=== PATIENT | male | born 1960 | race Asian ===

== ENCOUNTER 2018-07-31 12:37 | Day surgery (SDC) | payer OTHER ==
[2018-07-31] MEDS: LACTATED RINGER'S 1,000 ML IV (13:00)
[2018-07-31] MEDS: morphine 2 MG INJ IV (13:24)
[2018-07-31] MEDS ORDERED: POLYMYXIN/BACITRACIN 1L IRRIG (15:14)
[2018-07-31] MEDS ORDERED: LIDOCAINE 2% (SDV) 5 ML INJ (15:16)
[2018-07-31] MEDS ORDERED: PROPOFOL 20 ML (15:16)
[2018-07-31] MEDS ORDERED: CEFAZOLIN 1 GM INJ (15:16)
[2018-07-31] MEDS ORDERED: ONDANSETRON 4 MG INJ (15:17)
[2018-07-31] MEDS ORDERED: FENTAnyl 50 MCG/ML VIAL (15:19)
[2018-07-31] MEDS ORDERED: FENTAnyl 50 MCG/ML VIAL IV ×2 (15:30)
[2018-07-31] MEDS ORDERED: OXYCODONE/ACETAMINOPHEN (5/325) TAB PO (15:30)
[2018-07-31] MEDS ORDERED: MIDAZOLAM 1 MG/ML 2 ML INJ IV (15:30)
[2018-07-31] MEDS ORDERED: EPHEDrine SULFATE 50 MG/5 ML SYG IV (15:30)
[2018-07-31] MEDS ORDERED: DIPHENHYDRAMINE 50 MG INJ IV (15:30)
[2018-07-31] MEDS ORDERED: hydrALAzine 20 MG INJ IV (15:30)
[2018-07-31] MEDS ORDERED: LABETALOL HCL 20MG INJ IV (15:30)
[2018-07-31] MEDS ORDERED: ONDANSETRON 4 MG INJ IV (15:30)
[2018-07-31] MEDS ORDERED: EPHEDrine SULFATE 50 MG/5 ML SYG (15:48)
[2018-07-31] MEDS ORDERED: ROPIVACAINE 0.5 % 30 ML VIAL (15:58)
[2018-07-31] MEDS: FENTAnyl 50 MCG/ML VIAL IV (16:40)
[2018-07-31] MEDS: MEPERIDINE 25 MG INJ IV (16:59)
[2018-07-31] MEDS: OXYCODONE/ACETAMINOPHEN (5/325) TAB PO ×2 (17:21→17:54)
[2018-07-31] MEDS: METOCLOPRAMIDE 10 MG INJ IV (18:08)
== END 2018-07-31 19:14 | disposition home or self-care (01) ==
LOC: SDS 12:37
DX: T84.84XA Pain due to internal orthopedic prosthetic devices, implants and grafts, initial encounter (principal); Y79.3 Surgical instruments, materials and orthopedic devices (including sutures) associated with adverse incidents; Y83.8 Other surgical procedures as the cause of abnormal reaction of the patient, or of later complication, without mention of misadventure at the time of the procedure; E11.9 Type 2 diabetes mellitus without complications; I10 Essential (primary) hypertension; E78.5 Hyperlipidemia, unspecified; I25.10 Atherosclerotic heart disease of native coronary artery without angina pectoris; Z79.84 Long term (current) use of oral hypoglycemic drugs
CPT/HCPCS: 20680; 82962; 88300